=== PATIENT | female | born 1955 | race Caucasian/White ===

== ENCOUNTER 2021-06-25 10:44 | Emergency (ER) | payer MEDICARE, BC ==
--- NOTE | 2021-06-25 14:24 | EDM.PDOC ---
ED HPI GENERAL MEDICAL PROBLEM - General Chief Complaint: Lower Extremity Injury/Pain Stated Complaint: KNEE INJURY Time Seen by Provider: 06/25/21 13:29 Source of Information: Reports: Patient, RN Notes Reviewed History Limitations: Reports: No Limitations - History of Present Illness INITIAL COMMENTS - FREE TEXT/NARRATIVE: Patient is a 66-year-old female presenting to the emergency department with complaints of left knee pain. She reports that yesterday she tripped at home, causing her to fall. Since that time, she has been having intense left knee pain. She has unable to walk on it without significant discomfort. She does have a history of severe arthritis in her bilateral knees. She is also had a previous tibial plateau fracture in this knee which did not require surgical intervention. She has been icing and elevating the knee with little relief. Left Knee Pain Score (Numeric/FACES): 6 - Related Data Allergies Allergy/AdvReac Type Severity Reaction Status Date / Time latex Allergy Intermediate Rash Verified 06/25/21 15:41 Home Meds: Home Meds Acetaminophen/HYDROcodone [[place] 325-5 MG] 1 tab PO Q6H PRN #15 tab 03/22/14 [Rx] Naproxen 500 mg PO BID #20 tablet 03/22/14 [Rx] Hydrocodone/Acetaminophen [Hydrocodone-Acetamin 5-325 mg] 1 each PO Q4H PRN #12 tablet 06/25/21 [Rx] Social & Family History - Tobacco Use Tobacco Use Status *Q: Never Tobacco User - Recreational Drug Use Recreational Drug Use: No Review of Systems - Review of Systems Review Of Systems: Comprehensive ROS is negative, except as noted in HPI. ED EXAM, GENERAL - Physical Exam Exam: See Below General Appearance: Alert, WD/WN, No Apparent Distress Respiratory/Chest: No Respiratory Distress, Lungs Clear, Normal Breath Sounds, No Accessory Muscle Use, Chest Non-Tender Cardiovascular: Normal Peripheral Pulses, Regular Rate, Rhythm, No Edema, No Gallop, No JVD, No Murmur, No Rub Extremities: Other (Edema and tenderness to palpation throughout the left knee joint. Range of motion limited due to pain.) Neurological: Alert, Oriented, Normal Cognition, No Motor/Sensory Deficits Psychiatric: Normal Affect, Normal Mood Skin Exam: Warm, Dry, Intact, Normal Color, No Rash Course - Vital Signs Last Recorded V/S: Last Vital Signs Temp 98.1 F 06/25/21 16:05 Pulse 107 H 06/25/21 16:05 Resp 16 06/25/21 16:05 BP 148/103 H 06/25/21 16:05 Pulse Ox 95 06/25/21 16:05 - Orders/Labs/Meds Meds: Medications Discontinued Medications Generic Name Dose Route Start Last Admin Trade Name Anthony PRN Reason Stop Dose Admin Influenza Virus Vaccine 60 mcg 06/25/21 16:00 06/25/21 15:50 Flu Vacc [id number])/[id number]/Pf 60 Mcg/0.5 Ml Syringe IM 06/25/21 16:01 60 mcg .ONCE ONE Administration - Re-Assessments/Exams Free Text/Narrative Re-Assessment/Exam: Patient is a 66-year-old female presenting to the emergency department with complaints of left knee pain. She fell yesterday and injured her knee. She is been having significant pain since that time. Unable to bear weight. On exam, she does have diffuse swelling of the left knee. There is no localized tenderness at any particular area, however she states when she bends her knee it hurts much more. I have ordered x-rays of the left knee. 06/25/21 1415 X-ray of the left knee shows bony abnormality in the lateral aspect of the distal femur. I have ordered CT scan of the left knee. 06/25/21 15:22 CT scan of the knee reviewed by myself and Dr. De León shows fracture within the epicondylar region of the distal femur. Case was discussed with orthopedist, Dr. Shah. He recommended that she put in a knee immobilizer and be nonweightbearing. She should follow-up with him in clinic early next week. He will review the images once he has access to a computer and contact me if he recommends any other treatment plan. Discussed this with patient she is in agreement. She has crutches and a walker at home, therefore she does not need to be provided with one today. We will put her knee immobilizer and assist her to the vehicle with wheelchair. Once home, someone will bring her a walker to use. Recommend ice and elevation. I will send this prescription for hydrocodone with Tylenol to be used as needed for pain. She will contact Dr. Shah's office to set up follow-up appointment for next week. Discharge instructions as documented. Departure - Departure Time of Disposition: 15:22 Disposition: Home, Self-Care 01 Condition: Good Clinical Impression: Closed fracture of knee region - Discharge Information *PRESCRIPTION DRUG MONITORING PROGRAM REVIEWED*: Yes *COPY OF PRESCRIPTION DRUG MONITORING REPORT IN PATIENT RADHA: No Prescriptions: Hydrocodone/Acetaminophen [Hydrocodone-Acetamin 5-325 mg] 1 each PO Q4H PRN #12 tablet PRN Reason: Pain Referrals: PCP,None [Primary Care Provider] - Forms: ED Department Discharge Additional Instructions: Wear the knee immobilizer at all times. Use crutches or walker for mobility. Do not bear weight on the extremity. Ice and elevate the knee when at rest. Use Tylenol and ibuprofen routinely for pain. For pain not relieved by this, a prescription for hydrocodone with Tylenol has been prescribed. Contact Dr. Shah's office tomorrow morning to set up follow-up for early next week. If you should experience any new or worsening symptoms of concern, please do not hesitate to return to the emergency department for reevaluation. Sepsis Event Note (ED) - Evaluation Sepsis Screening Result: No Definite Risk
--- NOTE | 2021-06-25 14:50 | CR ---
Left knee: AP, lateral and sunrise patellar views were obtained of the left knee. Comparison: Prior left knee study of 05/30/11. Questionable bony exostosis is noted off the lateral epicondylar region of the distal femur compatible with fracture. This is not identified on prior study. Fat/fluid level is seen within the suprapatellar pouch suspicious for possible acute abnormality. Bony structures are osteopenic. Slightly depressed lateral tibial plateau is seen compatible with old injury. Impression: 1. Bony exostosis compatible with fracture within the epicondylar region of the lateral femoral epicondylar region. 2. Fat/fluid level compatible with possible injury within the suprapatellar pouch. Diagnostic code #3
--- NOTE | 2021-06-25 15:36 | CT ---
CT left knee Technique: Multiple axial sections through the left knee were obtained as well as reconstructed coronal and sagittal images. Comparison: Prior plain film left knee exam performed earlier on the same day (1:41 PM). Findings: Fracture is identified within the lateral femoral epicondylar region which shows displacement up to 9 mm in a lateral direction. Fracture lines extend to involve the articular surface of the mid and anterior femur which shows no displacement. There is also some extension of the femoral epicondylar fracture into a more lateral articular margin showing displacement by about 3.7 mm. Degenerative change is noted between the articulation of the fibular head and tibia. There is slight cortical break also noted above the epicondylar region of the medial femur compatible with an additional fracture which is not well defined and appears to be anatomic in location. There is moderate medial joint space narrowing being seen. Joint effusion is noted which appears to be blood. Fat is also seen within the joint effusion. Impression: 1. Lateral epicondylar femoral fracture showing displacement up to 9 mm in a lateral direction. 2. Lateral epicondylar femoral fracture also shows extension into a portion of the lateral articular margin with displacement by about 3.7 mm. 3. Small fracture within the mid articular margin of the distal femur which connects to the lateral epicondylar fracture and appears normal in alignment. 4. Nondisplaced and poorly seen fracture within the mid distal femur above the epicondylar region. 5. Degenerative change as noted above. 6. Blood and fat within the suprapatellar bursa. Diagnostic code #3 MTDD
[2021-06-25] MEDS ORDERED: FLU Vacc QS2021(65UP)/MF59C/PF 60 MCG/0.5 ML Syringe IM ONE (16:00)
== END 2021-06-25 16:11 | disposition home or self-care (01) ==
LOC: JD.ED 10:44
DX: S82.002A Unspecified fracture of left patella, initial encounter for closed fracture (principal); Z91.040 Latex allergy status; W01.0XXA Fall on same level from slipping, tripping and stumbling without subsequent striking against object, initial encounter; Y92.009 Unspecified place in unspecified non-institutional (private) residence as the place of occurrence of the external cause
CPT/HCPCS: 73562; 73700; 90694; 99283; G0008